=== PATIENT | female | born 1950 | race Hispanic/Latino ===

== ENCOUNTER → 2019-09-15 | Outpatient (CLI) | payer OTHER ==
[~2019-09-15] MED LIST: AMBIEN10 MG PO; CRESTOR10 MG PO; FENTANYL1 EAC1 TOP; GABAPENTIN300 MG PO; HYDROCODON-ACE1 EA11 PO; IOPAMIDOL 370 MG/ML 200 ML INFUS..BTL INJ ONE; LOPRESSOR50 MG PO; PROMETHAZINE HC25 M1 PO; SODIUM CHLORIDE 0.9% 50ML 50 ML ONE; SYNTHROID150 MCG PO; VASOTEC5 MG PO
[2019-09-15 11:05] LABS: CREATININE, SERUM 0.92 mg/dL (0.57-1.11)
--- NOTE | 2019-09-15 12:04 | Diagnostic Imaging Report ---
EXAM: CT Abdomen and Pelvis WITH intravenous contrast INDICATION: Cystitis, hematuria COMPARISON: None. TECHNIQUE: Abdomen and pelvis were scanned utilizing a multidetector helical scanner from the lung base to the pubic symphysis after administration of IV contrast. Coronal and sagittal reformations were obtained. Routine protocol was performed. Scan was performed during portal venous phase. IV CONTRAST: 100mL of Isovue 370 ORAL CONTRAST: Water RADIATION DOSE: Total DLP: 761 mGy*cm Dose modulation, iterative reconstruction, and/or weight based adjustment of the mA/kV was utilized to reduce the radiation dose to as low as reasonably achievable. FINDINGS: LOWER THORAX: Normal. HEPATOBILIARY: 3.6 x 2.4 cm cyst at the hepatic dome. Additional 1.3 cm right hepatic cyst. No other focal liver lesions. No biliary ductal dilation. Status post cholecystectomy. SPLEEN: No splenomegaly. PANCREAS: No focal masses or ductal dilatation. ADRENALS: No adrenal nodules. KIDNEYS/URETERS: No hydronephrosis, stones, or solid mass lesions. PELVIC ORGANS/BLADDER: Decompressed bladder. Status post hysterectomy. PERITONEUM / RETROPERITONEUM: No free air or fluid. LYMPH NODES: No lymphadenopathy. VESSELS: Minimal scattered atherosclerotic calcifications of the nonaneurysmal abdominal aorta. GI TRACT: Diverticulosis without CT evidence of diverticulitis. No abnormal bowel thickening. No bowel obstruction. Status post appendectomy. BONES AND SOFT TISSUES: No acute osseous injury. No suspicious lytic or blastic lesions. IMPRESSION: No acute findings in the abdomen or pelvis. Diverticulosis without CT evidence of diverticulitis. Signed by: Jey Baron MD on 09/15/2019 12:01 PM
--- NOTE | 2019-09-16 08:32 | Diagnostic Imaging Report ---
Exam: Bone mineral density study. History: Osteoporosis screening Comparison: None Discussion: Evaluation of the left hip and lumbar spine was performed utilizing DEXA Hologic bone densitometer. The study is technically adequate. The patient's fracture risk is compared to an age-matched control. The patient denies prior surgery/fracture of the spine, hips or forearm. Left hip femoral neck bone mineral density: 0.593 g/cm2, T-score is -2.4, Z-score is -0.6. Left hip total bone mineral density: 0.741 g/cm2, T-score is -1.6, Z-score is -0.2. Lumbar spine total bone mineral density: 0.753 gm/cm2, T-score is -2.7, Z-score is -0.5. Impression: 1. Bone mineralization by WHO Classification of the left hip is osteopenia, the fracture risk is moderate. 2. Bone mineralization by WHO Classification of the lumbar spine is osteoporosis, the fracture risk is increased. Recommendations: Medical evaluation for secondary causes of low bone mineral density may be appropriate. Correlate clinically for the necessity and timing of the next bone mineral density study. Signed by: Dr. Saulo Childress MD on 09/16/2019 8:29 AM
== END ==
LOC: DX 10:22
PROVIDERS: ATTEND Family Medicine
DX: N30.91 Cystitis, unspecified with hematuria (principal)
CPT/HCPCS: 36415; 74177; 77080; 82565; 84520; Q9967

== ENCOUNTER 2020-03-03 18:07 | Emergency (ER) | payer MEDICARE, OTHER ==
[~2020-03-03] VITALS: Ht 162.6 cm; Wt 100.2 kg
[~2020-03-03 18:07] MED LIST changes: -IOPAMIDOL 370 MG/ML 200 ML INFUS..BTL INJ ONE; -SODIUM CHLORIDE 0.9% 50ML 50 ML ONE
[2020-03-03] MEDS ORDERED: ACETAMINOPHEN 325 MG TAB PO STA (18:53)
--- OUTSIDE RECORDS SUMMARY | 2020-03-03 18:55 | XMS REPORT | Continuity of Care Document ---
Author Author Fauzia XiongGILUPIJANNETTE [employer] Address Unknown Phone Unavailable Care Team Providers Care Creel Clerk Name Role Phone [employer] Unavailable Un available Problems Problem Status Onset Date Classification Date Reported Comments Source Other incomplete lesion at T11-T12 level of thoracic spinal cord, initial encounter 03/27/2018 10/08/2018 [facility] DX: S24.154A=OTHER INCOMPLETE LESION AT Active 03/12/2018 [facility] Diverticulitis of large intestine withou t perforation or abscess without bleeding 03/04/2018 09/14/2018 [facility] 719.4 - PAIN IN JOINT Active 07/31/2011 [facility] Medications No Data Provided for This Section Allergies, Adverse Reactions, Alerts No Known Medication Allergies Immunizations No Data Provided for This Section Results No Data Provided for This Section Pathology Reports No Data Provided for This Section Diagnostic Reports Report Value Date Source Spine lumbar wo contrast MRI S pine lumbar wo contrast MRI 08/13/2019 8:22 [facility]: M47.817 Spondylosis without myelopathy or radiculopathy, lumbosacral region - M47.817 Spondylosis without myelopathy or radiculopathy, lumbosacral region COMPARISON: No prior exam. TECHNIQUE: Sagittal T1, sagittal T2 with fat saturation, axial T1 and axial T2 images were obtained. No intravenous gadolinium was given. FINDINGS: The conus medullaris terminates at the L1 level. Mild levocurvature of the lumbar spine is present. Scattered lumbar spine vertebral body osseous hemangiomas are present, largest at the L4 vertebral body measuring approximately 2.5 cm. T12-L1: Disc desiccation. No central canal or foraminal stenosis. L1-L2: There is preservation of the disc signal intensity, height, with no bulging, herniation, spinal stenosis, or neural foraminal stenosis. L2-L3: Posterior annular fissure and disc desiccation are present. Mild bilateral foraminal stenosis due to disc bulge encroachment. No central canal stenosis. L3-L4: Mild left foraminal stenosis due to disc bulge encroachment. No central canal stenosis. L4-L5: Left laminectomy has been performed. No evidence of pseudomeningocele or arachnoiditis identified. 1.2 mm disc bulge without thecal sac stenosis. Moderate left foraminal stenosis due to disc bulge encroachment, mild right foraminal stenosis. L5-S1: Left laminectomy has been performed. Mild peripheral position of the sacral nerve roots may be due to mild arachnoiditis. No pseudomeningocele. No thecal sac stenosis. 2 mm disc bulge. Small bilateral foraminal and extraforaminal disc osteophyte complexes. No foraminal stenosis. IMPRESSION: 1. L4-L5 and L5-S1 left laminectomy. No pseudomeningocele. Mild L5-S1 level arachnoiditis suspected. No central canal stenosis at both levels. 2. L4-L5 moderate left foraminal stenosi s and mild right foraminal stenosis. 08/13/2019 [facility]amm[facility] ANN incl CAD MA BILATERAL DIGITAL SCREENING MAMMOGRAM WITH CAD: 03/29/2019 CLINICAL: Routine/Screening. Current study was evaluated with a Computer Aided Detection (CAD) system. COMPARISON:Comparison is made to exams dated: 03/03/2016 mammogram, 11/03/2014 mammogram, 08/06/2013 mammogram, and 06/12/2012 mammogram. TECHNIQUE: Mammographic views were obtained using digital acquisition. Current study was also evaluated with a Computer Aided Detection (CAD) system. FINDINGS: The tissue of both breasts is almost entirely fat. There is a benign mass in the right breast. There also are benign calcifications in both breasts. No significant masses, calcifications, or other findings are seen in either breast. There has been no significant interval change. IMPRESSION: BENIGN RECOMMENDATION:There is no mammographic evidence of malignancy. A 1 year screening mammogram is recommended.(03/29/2020) This exam was interpreted at [id number] for PATEL Miller 15. Professional services are provided by the [facility]. Jazzy Donohue M.D., ms/alicia:04/11/2019 10:48:15 Associate Designer(s): RT Collins(R)(M), [facility] letter sent: BI-RADS 1/2 Mammogram BI-RADS: 2 Benign 03/29/2019 [facility] Chest 2 views DX EXAM: Chest 2 views DX HISTORY: - R05 Cough COMPARISON: None The heart size is normal. The lungs are clear. There is no pleural effusion or pneumothorax. Mild discogenic degenerative changes are noted. IMPRESSION: No acute abnormality. 09/25/2018 [facility] Bone scan NM WHOLE BODY NUCLEA R MEDICINE BONE SCAN HISTORY: Bony lesions on recent 02/25/2018 CT abdomen pelvis.. Mid back pain. COMPARISON: 2017 CT abdomen pelvis.. TECHNIQUE: Two hours following the IV administration of 24 mCi 99m technetium MDP via the right antecubital vein, anterior and posterior whole body mages were obtained. In addition regional format imaging of the head and neck, chest, abdomen and pelvis in various projections.. Findings: Small focus of increased activity in the region of the right side of the L4-5 disc space. Most likely this is degenerative in nature. Arthritic-type activity in the left knee. Otherwise there is normal distribution of the radiopharmaceutical throughout the bony and soft tissues. No abnormal thoracic spine activity.. IMPRESSION: No abnormal activity at T11. The findings on the CT are consistent with benign hemangioma. Activity at L4-5 on the right most likely degenerative. Arthritic- type activity left knee. END REPORT SL: [id number] 03/21/2018 [facility] Abdomen/Pelvis w IV contrast CT EXAM: CT ABDOMEN AND PELVIS WITH CONTRAST DATE: 02/25/2018 8:01 AM CDT. INDICATION: - K57.32 Diverticulitis of large intestine without perforation or abscess without bleeding . ADDITIONAL INFORMATION: None. COMPARISON: None available.. TECHNIQUE: Abdomen and pelvis volumetric CT data set was acquired and axial, coronal and sagittal series were reconstructed. Postcontrast phases: Portal Venous and delays.. IV contrast: Omnipaque 300, 100 mL. Oral contrast: 450 mL Volumen. DLP: 2144 mGy-cm. FINDINGS: Lines and tubes: None. Lower thorax: Clear. Liver: There is mild diffuse low-attenuation. 1. There is a lobulated well-circumscrib ed segment 8 hepatic down cyst measuring 1.5 x 2.4 x 1.6 cm. 2. There is a subjacent segment segment 8, 0.4 cm hypodensity too small to characterize. 3. There is a segment 7 cyst measuring 0 .8 x 1.0 cm in diameter. 4. There is a segment 6 subcapsular 0.7 cm in diameter simple cyst. Biliary tree: Common bile duct measures 0.7 cm. Gallbladder: Status post cholecystectomy. Pancreas: Mild fatty replacement. Spleen: Normal. Adrenals: Normal. Kidneys and ureters: Normal. No filling defects seen within the opacified portions of the collecting system and bladder. Bladder: Normal. Reproductive organs: Status post hysterectomy. The adnexal regions are unremarkable. Gastrointestinal tract: Stomach: Unremarkable. Small bowel: Unremarkable. Colon: There is descending colonic and sigmoid diverticulosis without inflammatory changes. Fecal burden. Mild. Appendix: Surgically absent. Mesentery, peritoneum and retroperitoneum:Unremarkable. Lymph nodes: Normal. Arteries: Normal. Veins: The opacified portions are patent. There is bilateral gonadal vein calcification seen along the mid to lower psoas muscle seen on series 2, image 118 on the left and image 129 on the right. Bones: There is an L4 hemangioma with smaller hemangiomas seen at L1 and T11. The lesion at T11 partially extends into the right pedicle. Soft tissues: There is a tiny fat-containing umbilical hernia. IMPRESSION: 1. Mild descending colonic and sigmoid diverticulosis without diverticulitis. 2. 3 hepatic cysts and one of which is too small to characterize. 3. Mild diffuse hepatic steatosis. 4. Probable lumbar spine hemangiomas. H owever, the lesion within T11 extends into the right pedicle and further characterization with bone scan to exclude metabolic activity is recommended. 02/25/2018 [facility] Consultation Notes No Data Provided for This Section Discharge Summaries No Data Provided for This Section History and Physicals No Data Provided for This Section Vital Signs No Data Provided for This Section Encounters Location Location Details Encounter Type Encounter Number Reason For Visit Attending Provider ADM Date DC Date Status Source OD [id number] 719.4 - PAIN IN JOINT BANDAR MCDUFFIE 07/31/2011 Active [facility] [place] [facility] [id number] Bandar Mcduffie 02/25/2018 02/26/2018 [facility] [id number] Bandar Mcduffie 03/21/2018 03/22/2018 [place] [facility] [place] [facility] [id number] Bandar Mcduffie 09/25/2018 09/26/2018 [facility] [place] [facility] [place] [facility] [id number] 04 Bandar Mcduffie 03/29/2019 03/30/2019 [facility] [place] [facility] [place] [facility] [id number] 05 Irene Montillah 08/13/2019 08/14/2019 [facility] [place] Procedures No Data Provided for This Section Assessment and Plan No Data Provided for This Section Plan of Care No Data Provided for This Section Social History Social History Date Source No data available for this section 08/14/2019 [facility] [place] No data available for this section 03/22/2018 [facility] No data available for this section 02/26/2018 [facility] [place] Family History No Data Provided for This Section Advance Directives No Data Provided for This Section Functional Status No Data Provided for This Section
--- NOTE | 2020-03-03 18:56 | Emergency Department Note ---
History of Present Illnes History of Present Illness Chief Complaint: Chest Pain History of Present Illness This is a 69 year old female Chief Complaint Comment PT C/O BACK PAIN, FEVER, CHILLS, SANDOVAL, BLE PAIN, SYMPTOMS BEGAN 2 HOURS RECOATER TO ER, PT GIVEN ALEVE 1TAB ABOUT 1 HOUR RECOATER TO ER, PT HAD SOME CONGESTION ABOUT 4 DAYS AGO WHICH RESOLVED, PT ALSO STATES HAS BEEN HAVING CHEST DISCOMFORT FOR OVER 2 MONTHS NICOLAS INGRAM SHE TAKES DEEP BREATHS, DENIES CHEST PAIN CURRENTLY BUT AGAIN STATES SHE SOMETIMES HAS PAIN WITH DEEP BREATHS,PT HAD A COVID TEST 02/02 AT [facility] AND RESULTS WERE NEGATIVE AT TIME, PT DID NOT HAVE SYMPTOMS WHEN TESTEDNOR WAS SHE EXPOSED TO A POSSIBLE COVID POSITIVE PERSON. Historian: Patient Arrival Mode: Car Electrical Tester Battery Required: No Onset (how long ago): day(s) Location: Generalized Quality: chills, fever Radiation: Reports non-radiation Severity: moderate Onset quality: gradual Duration (how long): day(s) (1) Timing of current episode: intermittent Progression: unchanged Chronicity: new Context: Denies recent illness, Denies recent surgery Relieving factors: none Exacerbating factors: none Associated symptoms: Reports denies other symptoms Treatments prior to arrival: none Past Medical/Family History Physician Review I have reviewed the patient's past medical and family history. Any updates have been documented here. Past Medical History Recent Fever: No Clinical Suspicion of Infectio: No New/Unexplained Change in Ment: No Past Medical History: Diabetes Other Medical History: FIBROMYALGIA, RA CHRONIC BACK PAIN Past Surgical History: Cholecysctectomy, Appendectomy, Hysterectomy, Back Surgery Other Surgery: MULT BACK SX'S MULT ABD SURGERIES ADHESIONS Social History Physically hurt or threatened: No Other Last Tetanus: NO Review of Systems Review of Systems Constitutional: Reports as per HPI, Reports chills, Reports fever EENTM: Reports no symptoms Cardiovascular: Reports no symptoms Respiratory: Reports no symptoms Gastrointestinal: Reports no symptoms Genitourinary: Reports no symptoms Musculoskeletal: Reports as per HPI, Reports muscle pain Integumentary: Reports no symptoms Neurological: Reports no symptoms Psychological: Reports no symptoms Endocrine: Reports no symptoms Hematological/Lymphatic: Reports no symptoms Physical Exam Related Data Allergies: Coded Allergies: dicyclomine (Verified Allergy, Severe, SWOLLEN MOUTH N THROAT, 07/08/12) Uncoded Allergies: BIOTINE (Adverse Reaction, Unknown, 03/03/20) Triage Vital Signs Vital Signs Date Time Temp Pulse Resp B/P (MAP) Pulse Ox O2 Delivery O2 Flow Rate FiO2 03/03/20 18:16 102.3 105 18 161/64 100 Room Air Vital signs reviewed: Yes Physical Exam CONSTITUTIONAL Constitutional: Present well-developed, Present well-nourished HENT HENT: Present normocephalic, Present atraumatic, Present oropharynx clear/moist, Present nose normal HENT L/R: Present left ext ear normal, Present right ext ear normal EYES Eyes: Reports PERRL, Reports conjunctivae normal NECK Neck: Present ROM normal PULMONARY Pulmonary: Present effort normal, Present breath sounds normal CARDIOVASCULAR Cardiovascular: Present regular rhythm, Present heart sounds normal, Present capillary refill normal, Present normal rate GASTROINTESTINAL Abdominal: Present soft, Present nontender, Present bowel sounds normal GENITOURINARY Genitourinary: Present exam deferred SKIN Skin: Present warm, Present dry MUSCULOSKELETAL Musculoskeletal: Present ROM normal NEUROLOGICAL Neurological: Present alert, Present oriented x 3, Present no gross motor or sensory deficits PSYCHOLOGICAL Psychological: Present mood/affect normal, Present judgement normal Procedures 12 Lead ECG Interpretation ECG Interpretation : ECG: ECG 1 Electrical Tester Battery: Interpreted by ED physician Date: Mar 03, 2020 Rhythm: sinus rhythm Rate: normal BPM: 96 QRS axis: left ST segments normal: Yes T waves normal: Yes Clinical Impression: non-specific ECG Assessment & Plan Medical Decision Making MDM 69-year-old female presents for fevers, chills, diffuse muscle aches. Symptoms started about 1 day ago. Examination shows normal well-appearing female in no acute distress. Vital signs stable, within except limits. Initial differential includes pneumonia versus coronavirus versus urinary tract infection among others. Workup shows younger tract infection. She was given Rocephin and will be discharged home on Keflex. She will follow up with primary care provider or return to emergency department for new or worsening symptoms. I do not suspect sepsis at this time. Patient is appropriate for discharged. Reassessment Reassessment time: 19:52 Reassessment Well appearing, NAD Assessment & Plan Final Impression: (1) UTI (urinary tract infection) Depart Disposition: HOME, SELF-CARE Last Vital Signs Date Time Temp Pulse Resp B/P (MAP) Pulse Ox O2 Delivery O2 Flow Rate FiO2 03/03/20 18:16 102.3 105 18 161/64 100 Room Air Home Meds Active Scripts Cephalexin Monohydrate (KEFLEX) 500 Mg Capsule, 500 MG PO QID for uti for 10 Days, #40 TAB 0 Refills Prov:ADRIAN KHAN MD 03/03/20 Reported Medications Promethazine Hcl (PROMETHAZINE HCL) 25 Mg Tablet, 25 MG PO Q6 PRN 07/08/12 Zolpidem Tartrate (AMBIEN) 10 Mg Tablet, 10 MG PO HS 07/08/12 Hydrocodone Bit/Acetaminophen (HYDROCODON-ACETAMINOPHEN 5-325) 1 Each Tablet, 1 TAB PO TID 07/08/12 Gabapentin (GABAPENTIN) 300 Mg Capsule, 300 MG PO QID 07/08/12 Fentanyl (FENTANYL) 1 Each Patch.td72, 50 MCG TOP [id number] 07/08/12 Levothyroxine Sodium (SYNTHROID) 150 Mcg Tablet, 150 MCG PO DAILY 07/08/12 Metoprolol Tartrate (LOPRESSOR) 50 Mg Tablet, 12.5 MG PO DAILY 07/08/12 Enalapril Maleate (VASOTEC) 5 Mg Tab, 5 MG PO DAILY 07/08/12 Rosuvastatin Calcium (CRESTOR) 10 Mg Tab, 10 MG PO DAILY 07/08/12 Medications in the ED Acetaminophen 1,000 mg ONCE STAT PO ; Start 03/03/20 at 18:46; Stop 03/03/20 at 18:47; Status UNV Sodium Chloride 1,000 ml @ 100 mls/hr Q10H IV ; Start 03/03/20 at 19:00; Stop 04/02/20 at 18:59; Status UNV ADRIAN KHAN MD Mar 03, 2020 18:56
[2020-03-03] MEDS ORDERED: SODIUM CHLORIDE 0.9% 1000ML 1,000 ML IV SCH (19:00)
[2020-03-03] MEDS ORDERED: ACETAMINOPHEN 325 MG TAB ONE (19:00)
[2020-03-03] MEDS ORDERED: SODIUM CHLORIDE 0.9% 1000ML 1,000 ML ONE (19:00)
[2020-03-03 19:14] LABS: BASOPHILS % 0.3 % (0.0-1.0); EOSINOPHILS % 0.3 % (0.0-6.0); HEMATOCRIT 35.7 % (34.2-44.1); HEMOGLOBIN 11.2 g/dL (12.0-16.0); LYMPHOCYTES % 8.7 % (18.0-39.1); MEAN CORPUSCULAR HEMOGLOBIN 28.1 pg (28-32); MEAN CORPUSCULAR HGB CONC 31.4 g/dL (31-35); MEAN CORPUSCULAR VOLUME 89.5 fL (81-99); MONOCYTES # (AUTO) 0.2 (0.2-0.8); MONOCYTES % 1.7 % (4.4-11.3); NEUTROPHILS # (AUTO) 10.5 (2.1-6.9); NEUTROPHILS % 88.6 % (38.7-80.0); PLATELET COUNT 229 x10e3/uL (140-360); RED BLOOD COUNT 3.99 x10e6/uL (3.6-5.1); RED CELL DISTRIBUTION WIDTH 13.8 % (11.7-14.4)
[2020-03-03 19:16] LABS: BILIRUBIN,URINE NEGATIVE (NEGATIVE); CLARITY,URINE SL CLOUDY (CLEAR); COLOR,URINE YELLOW (YELLOW); KETONES,URINE TRACE (NEGATIVE); LEUKOCYTE ESTERASE ,URINE SMALL (NEGATIVE); NITRITE,URINE POSITIVE (NEGATIVE); PROTEIN,URINE DIPSTICK TRACE (NEGATIVE); URINE UROBILINOGEN 0.2 mg/dL (0.2 - 1)
[2020-03-03 19:21] LABS: WBC,URINE (MAN) 21-50 /HPF (0-5)
[2020-03-03 19:22] LABS: BACTERIA,URINE MANY /HPF; EPITHELIAL CELLS,URINE RARE /LPF; MUCUS,URINE FEW (RARE)
[2020-03-03 19:33] LABS: ALBUMIN/GLOBULIN RATIO 0.9 (0.8-2.0); ANION GAP 15.8 mmol/L (8-16); CALCIUM 8.7 mg/dL (8.4-10.2); CREATININE, SERUM 0.96 mg/dL (0.57-1.11); POTASSIUM 3.8 mmol/L (3.5-5.1)
[2020-03-03] MEDS ORDERED: CEFTRIAXONE SOD 1 GM/NS 50 ML 50 ML IV ONE (19:45)
--- NOTE | 2020-03-03 20:03 | Diagnostic Imaging Report ---
EXAMINATION: CHEST SINGLE (PORTABLE) INDICATION: Sepsis. COMPARISON: None FINDINGS: TUBES and LINES: None. LUNGS: Normal lung volumes. Lungs are clear. No consolidations. PLEURA: No pleural effusion or pneumothorax. HEART AND MEDIASTINUM: The cardiomediastinal silhouette is unremarkable. BONES AND SOFT TISSUES: No acute osseous lesion. Soft tissues are unremarkable. UPPER ABDOMEN: No free air under the diaphragm. IMPRESSION: No acute thoracic radiographic abnormality. Signed by: Tim Redd MD on 03/03/2020 8:00 PM
[2020-03-03] MEDS ORDERED: KEFLEX500 MG PO (20:08)
[2020-03-03 21:46] VITALS: BP 113/61
== END 2020-03-03 21:49 | disposition home or self-care (01) ==
LOC: ER 18:17
DX: N39.0 Urinary tract infection, site not specified (principal); R50.9 Fever, unspecified; M54.5 Low back pain; R07.89 Other chest pain; R51 Headache; E11.9 Type 2 diabetes mellitus without complications; M79.7 Fibromyalgia; M06.9 Rheumatoid arthritis, unspecified; M54.9 Dorsalgia, unspecified; G89.29 Other chronic pain
CPT/HCPCS: 36415; 71045; 80053; 81001; 83605; 85025; 87040; 87086; 87186; 93005; 99284; J0696; J7030

== ENCOUNTER → 2021-02-21 | Outpatient (CLI) | payer MEDICARE ==
[~2021-02-21] MED LIST changes: +KEFLEX500 MG PO
== END ==
LOC: CT 12:14
PROVIDERS: ATTEND Family Medicine
DX: S09.90XA Unspecified injury of head, initial encounter (principal); R29.6 Repeated falls
CPT/HCPCS: 70450

== ENCOUNTER → 2021-09-08 | Day surgery (SDC) | payer MEDICARE ==
[2021-09-06 10:21] LABS: BASOPHILS # (AUTO) 0.1 (0.0-0.1); BASOPHILS % 1.3 % (0.0-1.0); EOSINOPHILS # (AUTO) 0.1 (0.0-0.4); EOSINOPHILS % 2.4 % (0.0-6.0); HEMATOCRIT 34.4 % (34.2-44.1); HEMOGLOBIN 10.8 g/dL (12.0-16.0); LYMPHOCYTES # (AUTO) 2.3 (1.0-3.2); LYMPHOCYTES % 42.5 % (18.0-39.1); MEAN CORPUSCULAR HEMOGLOBIN 28.9 pg (28-32); MEAN CORPUSCULAR HGB CONC 31.4 g/dL (31-35); MONOCYTES # (AUTO) 0.4 (0.2-0.8); MONOCYTES % 7.2 % (4.4-11.3); NEUTROPHILS # (AUTO) 2.5 (2.1-6.9); NEUTROPHILS % 46.4 % (38.7-80.0); PLATELET COUNT 229 x10e3/uL (140-360); RED BLOOD COUNT 3.74 x10e6/uL (3.6-5.1); RED CELL DISTRIBUTION WIDTH 13.3 % (11.7-14.4)
[2021-09-06 10:59] LABS: ANION GAP 10.9 mmol/L (8-16); CALCIUM 8.5 mg/dL (8.4-10.2); CREATININE, SERUM 0.91 mg/dL (0.57-1.11); POTASSIUM 3.9 mmol/L (3.5-5.1)
[~2021-09-08] MED LIST changes: +ALBUTEROL0.63 MG/3 NEB; +BALANCED SALT SOLN (OPTH) 15 ML BTL IO ONE; +BUPIVACAINE HC 0.75% PF 10ML VIAL INJ ONE; +CYCLOPENTOLATE HCL 1% OPTH SOLN 2ML BTL ONE; +CYCLOPENTOLATE HCL 2% OPTH SOLN 2 ML BTL OP ONE; +DEXTROSE 5% 250ML 250 ML IV ONE; +EPINEPHRINE HCL 1:1000 1ML 1 MG/ML AMP ONE; +GATIFLOXACIN(OPTH) 5 ML LIQD ONE; +LIDOCAINE 2% /EPINEPHRINE 20 ML SDV INJ ONE; +PHENYLEPHRINE HCL 2 ML DROPS ONE; +PILOCARPINE HCL(OPTH) 15 ML LIQD ONE; +POVIDONE IODINE 0.05% 0.05 % ML PO ONE; +POVIDONE IODINE 5% (OPTH) 30 ML BTL ONE; +PROPOFOL IV EMULSION 10 MG/ML 20 ML VIAL ONE; +TEMAZEPAM15 MG PO; +TOBRAMYCIN/DEXAMETHASONE(OPTH) 3.5 GM TUBE ONE; +TRULICITY0.75 MG/0. SC
[2021-09-08 08:20] VITALS: BP 132/86
== END | disposition home or self-care (01) ==
LOC: OR 06:30
PROVIDERS: ATTEND Ophthalmology
DX: H25.11 Age-related nuclear cataract, right eye (principal); E11.9 Type 2 diabetes mellitus without complications; I10 Essential (primary) hypertension; M79.7 Fibromyalgia; I45.10 Unspecified right bundle-branch block; R00.1 Bradycardia, unspecified; M19.90 Unspecified osteoarthritis, unspecified site; R53.1 Weakness; J45.909 Unspecified asthma, uncomplicated; E78.5 Hyperlipidemia, unspecified; K51.90 Ulcerative colitis, unspecified, without complications; E07.89 Other specified disorders of thyroid; Z88.1 Allergy status to other antibiotic agents; Z88.8 Allergy status to other drugs, medicaments and biological substances; Z01.810 Encounter for preprocedural cardiovascular examination; Z01.812 Encounter for preprocedural laboratory examination; Z20.822 Contact with and (suspected) exposure to COVID-19; Z79.899 Other long term (current) drug therapy
CPT/HCPCS: 36415 ×2; 66984; 80048; 82948; 85025; 93005; J0171; J2001; J2704; J7070; U0002; V2632

== ENCOUNTER → 2022-02-06 | Outpatient (CLI) | payer MEDICARE ==
[~2022-02-06] MED LIST changes: -BALANCED SALT SOLN (OPTH) 15 ML BTL IO ONE; -BUPIVACAINE HC 0.75% PF 10ML VIAL INJ ONE; -CYCLOPENTOLATE HCL 1% OPTH SOLN 2ML BTL ONE; -CYCLOPENTOLATE HCL 2% OPTH SOLN 2 ML BTL OP ONE; -DEXTROSE 5% 250ML 250 ML IV ONE; -EPINEPHRINE HCL 1:1000 1ML 1 MG/ML AMP ONE; -GATIFLOXACIN(OPTH) 5 ML LIQD ONE; -LIDOCAINE 2% /EPINEPHRINE 20 ML SDV INJ ONE; -PHENYLEPHRINE HCL 2 ML DROPS ONE; -PILOCARPINE HCL(OPTH) 15 ML LIQD ONE; -POVIDONE IODINE 0.05% 0.05 % ML PO ONE; -POVIDONE IODINE 5% (OPTH) 30 ML BTL ONE; -PROPOFOL IV EMULSION 10 MG/ML 20 ML VIAL ONE; -TOBRAMYCIN/DEXAMETHASONE(OPTH) 3.5 GM TUBE ONE
== END ==
LOC: US 13:27
PROVIDERS: ATTEND Family Medicine
DX: N28.9 Disorder of kidney and ureter, unspecified (principal)
CPT/HCPCS: 76770

== ENCOUNTER → 2022-04-06 | Day surgery (SDC) | payer MEDICARE ==
[2022-04-04 10:18] LABS: BASOPHILS # (AUTO) 0.1 (0.0-0.1); BASOPHILS % 1.1 % (0.0-1.0); EOSINOPHILS # (AUTO) 0.1 (0.0-0.4); EOSINOPHILS % 1.7 % (0.0-6.0); HEMOGLOBIN 10.8 g/dL (12.0-16.0); MEAN CORPUSCULAR HEMOGLOBIN 28.9 pg (28-32); MEAN CORPUSCULAR HGB CONC 31.8 g/dL (31-35); MEAN CORPUSCULAR VOLUME 90.9 fL (81-99); MONOCYTES # (AUTO) 0.4 (0.2-0.8); MONOCYTES % 7.8 % (4.4-11.3); NEUTROPHILS % 44.5 % (38.7-80.0); PLATELET COUNT 193 x10e3/uL (140-360); RED BLOOD COUNT 3.74 x10e6/uL (3.6-5.1); RED CELL DISTRIBUTION WIDTH 13.8 % (11.7-14.4)
[~2022-04-06] MED LIST changes: +BALANCED SALT SOLN (OPTH) 15 ML BTL IO ONE; +BUPIVACAINE HC 0.75% PF 10ML VIAL INJ ONE; +CYCLOPENTOLATE HCL 2% OPTH SOLN 2 ML BTL OP ONE; +EPINEPHRINE HCL 1:1000 1ML 1 MG/ML AMP ONE; +GATIFLOXACIN(OPTH) 5 ML LIQD ONE; +LIDOCAINE 2% /EPINEPHRINE 20 ML SDV INJ ONE; +LIDOCAINE HCL 2% LOCAL INJ 5 ML SDV VIAL INJ ONE; +METHOCARBAMOL750 MG PO; +MIDAZOLAM HCL 2 MG/2 ML VIAL ONE; +PHENYLEPHRINE HCL 2 ML DROPS ONE; +PILOCARPINE HCL(OPTH) 15 ML LIQD ONE; +POVIDONE IODINE 0.05% 0.05 % ML PO ONE; +POVIDONE IODINE 5% (OPTH) 30 ML BTL ONE; +PROPOFOL IV EMULSION 10 MG/ML 20 ML VIAL ONE; +SODIUM CHLORIDE 0.9% 1000ML 1,000 ML ONE; +TOBRAMYCIN/DEXAMETHASONE(OPTH) 3.5 GM TUBE ONE
[2022-04-06 12:45] VITALS: BP 123/50
== END | disposition home or self-care (01) ==
LOC: OR 09:12
PROVIDERS: ATTEND Ophthalmology
DX: H25.12 Age-related nuclear cataract, left eye (principal); M79.7 Fibromyalgia; E03.9 Hypothyroidism, unspecified; E11.22 Type 2 diabetes mellitus with diabetic chronic kidney disease; I12.9 Hypertensive chronic kidney disease with stage 1 through stage 4 chronic kidney disease, or unspecified chronic kidney disease; N18.9 Chronic kidney disease, unspecified; E78.5 Hyperlipidemia, unspecified; J45.909 Unspecified asthma, uncomplicated; Z88.8 Allergy status to other drugs, medicaments and biological substances; Z01.810 Encounter for preprocedural cardiovascular examination; Z01.812 Encounter for preprocedural laboratory examination
CPT/HCPCS: 36415; 66984; 85025; 93005; J0171; J2001; J2704; J7030; V2632; J2250